=== PATIENT | female | born 2000 | race Caucasian/White ===

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

== ENCOUNTER 2022-05-11 05:40 | Inpatient (IN) | payer OTHER ==
[~2022-05-11] VITALS: Ht 157.5 cm; Wt 81.6 kg
[2022-05-11] MEDS ORDERED: PRENATAL VITAM1 EAC3 PO (07:36)
[2022-05-11 08:39] LABS: HEMOGLOBIN 10.1 gm/dl (12.3-15.3); RED BLOOD COUNT 3.71 M/UL (4.00-5.10); WHITE BLOOD COUNT 9.8 K/UL (4.5-11.0)
[2022-05-11 12:00] LABS: BUN/CREATININE RATIO 15 (0-10)
[2022-05-11] MEDS ORDERED: HEMOCYTE324 MG PO (14:19)
[2022-05-11] MEDS ORDERED: COLACE100 MG PO (14:19)
[2022-05-11] MEDS ORDERED: IBUPROFEN800 MG PO (14:19)
[2022-05-12 03:11] LABS: HEMOGLOBIN 9.3 gm/dl (12.3-15.3)
[2022-05-13] MEDS ORDERED: LABETALOL HCL200 MG PO (13:56)
== END 2022-05-13 18:59 | disposition home or self-care (01) | DRG 807 ==
LOC: OB 05:40
PROVIDERS: Obstetrics & Gynecology; ADMIT Obstetrics & Gynecology
PROC: 10E0XZZ Delivery of Products of Conception, External Approach (ICD-10-PCS; principal; 2022-05-11)
PROC: 10907ZC Drainage of Amniotic Fluid, Therapeutic from Products of Conception, Via Natural or Artificial Opening (ICD-10-PCS; 2022-05-11)
PROC: 0HQ9XZZ Repair Perineum Skin, External Approach (ICD-10-PCS; 2022-05-11)
DX: O24.429 Gestational diabetes mellitus in childbirth, unspecified control (principal); Z37.0 Single live birth; O13.4 Gestational [pregnancy-induced] hypertension without significant proteinuria, complicating childbirth; Z3A.38 38 weeks gestation of pregnancy; Z83.3 Family history of diabetes mellitus; Z82.49 Family history of ischemic heart disease and other diseases of the circulatory system; Z28.310 Unvaccinated for COVID-19
CPT/HCPCS: 36415; 80053; 80307; 82570; 82962; 83615; 83735; 84156; 84550; 85014; 85018; 85025; 90471; 90715; J0595; J2405; J3475